=== PATIENT | male | born 1970 | race Caucasian/White ===

== ENCOUNTER 2024-05-27 08:55 | Outpatient (CLI) | payer OTHER, SELFPAY ==
--- NOTE | ~2024-05-27 | MR_ITS ---
MRI of the right knee Clinical history: Medial meniscus tear Technique: Coronal proton density and proton density-weighted images, sagittal proton-density and T2 fat-sat images, and axial proton-density fat-saturated images were acquired. Findings: Anterior and posterior cruciate ligaments are intact. Medial collateral ligament and the la teral collateral ligament complex are intact. Popliteus tendon is intact. There is extensive complex tearing and maceration of the posterior horn and body of medial meniscus. No lateral meniscal tear evident. There is minimal chondromalacia patella. There is mild chondromalacia the femoral trochlea. There is high-grade chondromalacia extensively involving the medial compartment, especially towards the joint line. There is minimal chondral thinning in the lateral compartment. Extensor mechanism is intact. Large joint effusion present with moderate Fernandez's cyst. Impression: Extensive complex tearing of the posterior horn and body medial meniscus, which are largely macerated in appearance. 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 Mild chondral malacia of the lateral and patellofemoral compartments. Large joint effusion with moderate Fernandez's cyst. Reviewed, dictated and finalized at [facility]. IMPLEMENT ENGINE MECHANIC Impression: Extensive complex tearing of the posterior horn and body medial meniscus, which are largely macerated in appearance. 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 Mild ch ondral malacia of the lateral and patellofemoral compartments. Large joint effusion with moderate Fernandez's cyst.
== END 2024-05-27 08:56 | disposition home or self-care (01) ==
LOC: MICIMG 08:56
PROVIDERS: PCP Orthopaedic Surgery; Visit Provider Orthopaedic Surgery
DX: S83.241A Other tear of medial meniscus, current injury, right knee, initial encounter (principal); X58.XXXA Exposure to other specified factors, initial encounter; M25.461 Effusion, right knee; M71.21 Synovial cyst of popliteal space [Baker], right knee
CPT/HCPCS: 73721

== ENCOUNTER 2024-07-07 11:31 | Outpatient (CLI) | payer OTHER, SELFPAY ==
--- OUTSIDE RECORDS SUMMARY | 2024-07-07 11:40 | XMS_ITS | Encounter Summary ---
Author Organization [employer] Address 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
--- OUTSIDE RECORDS SUMMARY | 2024-07-07 11:40 | XMS_ITS | Encounter Summary ---
Author Organization [employer] Address 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
--- OUTSIDE RECORDS SUMMARY | 2024-07-07 11:40 | XMS_ITS | Encounter Summary ---
Author Organization [employer] Address [address] [place] [address] Care Team Providers Care Auto Bench Mechanic Name Role Phone Miguel A Mcgill MD Primary Care Provider Encounter Details Date Type Department Care Team (Latest Contact Info) Description 02/15/2002 Outpatient Historical [facility] Miguel A Mcgill MD [address] [place] [address] ARTHRODESIS STATUS (Primary Dx) Social History Tobacco Use Types Packs/Day Years Used Date Smoking Tobacco: Never Assessed Sex and Gender Information Value Date Recorded Sex Assigned at Not on file Legal Sex Male 5:21 AM OBJECT ORIENTED DEVELOPER Gender Identity Not on file Sexual Orientation Not on file documented as of this encounter Plan of Treatment Not on file documented as of this encounter Visit Diagnoses Diagnosis Arthrodesis status- Primary documented in this encounter Care Teams Auto Bench Mechanic Relationship Specialty Start Date End Date Miguel A Mcgill MD [address] [place] [address] PCP - General 12/07/01 documented as of this encounter
--- OUTSIDE RECORDS SUMMARY | 2024-07-07 11:40 | XMS_ITS | Encounter Summary ---
Author Organization [employer] Address 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
--- OUTSIDE RECORDS SUMMARY | 2024-07-07 11:40 | XMS_ITS | Encounter Summary ---
Author Organization [facility] Care Team Providers Care Ring Sewer Name Role Phone Alfonzo Flower MD Primary Care Provider [phone] Brett Montano DO Primary Care Provider [phone] Encounter Details Date Type Department Care Team (Latest Contact Info) Description 08/27/2017 Orders Only [facility] ProviderLaura MD [address] [place] [address] Social History Tobacco Use Types Packs/Day Years Used Date Smoking Tobacco: Never Assessed Sex and Gender Information Value Date Recorded Sex Assigned at Not on file Legal Sex Male 11:51 PM TELETYPIST Gender Identity Not on file Sexual Orientation Not on file documented as of this encounter Plan of Treatment Not on file documented as of this encounter Procedures Procedure Name Priority Date/Time Associated Diagnosis Comments SCAN - LABS 02/23/2018 12:00 AM CDT documented in this encounter Results * SCAN - LABS (02/23/2018 12:00 AM CDT) Narrative 02/23/2018 12:00 AM CDT Ordered by an unspecified provider. Historical Provider Final Res ult documented in this encounter Visit Diagnoses Not on filedocumented in this encounter Care Teams Ring Sewer Relationship Specialty Start Date End Date Alfonzo Flower MD [address] [place] [address] PCP - General 06/12/09 04/04/23 Brett Montano DO [address] [place] [address] PCP - General Internal Medicine 04/05/23 documented as of this encounter
--- OUTSIDE RECORDS SUMMARY | 2024-07-07 11:40 | XMS_ITS | Referral Summary ---
Author Organization [facility] Address [address] [place] [address] Care Team Providers Care Potash Flaker Name Role Phone Brett Montano DO Primary Care Provider [phone] Allergies No known active allergies Medications ibuprofen (ADVIL,MOTRIN) 100 mg tablet Take by mouth every 6 (six) hours as needed Active sildenafiL (VIAGRA) 100 mg tablet Take 1 tablet (100 mg total) by mouth daily as needed 07/03/2021 Active amLODIPine-kiersten zepriL (LOTREL) 5-40 mg per capsule Take 1 capsule by mouth daily Active Active Problems Problem Noted Date Diagnosed Date Primary hypertension 09/24/2022 Shortness of breath 07/11/2021 Obesity (BMI 35.0-39.9 without comorbidity) 04/23 Abnormal EKG 08/23/2018 HTN (hypertension) 08/23/2018 Ectopic beats 08/23/2018 Brugada syndrome 02/20/2016 Tobacco abuse 02/20/2016 Abnormal EKG 02/19/2016 Ectopic beats 02/19/2016 Resolved Problems Problem Noted Date Diagnosed Date Resolved Date Obesity 08/23/2018 05/09/2021 Social History Tobacco Use Types Packs/Day Years Used Date Smoking Tobacco: Every Day Cigarettes Smokeless Tobacco: Never Sex and Gender Information Value Date Recorded Sex Assigned at Not on file Legal Sex Male 11:51 PM DATA MANAGEMENT ENGINEER Gender Identity Not on file Sexual Orientation Not on file Last Filed Vital Signs Vital Sign Reading Time Taken Comments Blood Pressure 126/70 04/05/2023 4:41 PM DATA MANAGEMENT ENGINEER Pulse 87 04/05/2023 4:41 PM DATA MANAGEMENT ENGINEER Temperature 36.7 C (98 F) 07/11/2021 8:21 AM DATA MANAGEMENT ENGINEER Respiratory Rate - - Oxygen Saturation 97% 04/05/2023 4:41 PM DATA MANAGEMENT ENGINEER Inhaled Oxygen Concentration - - Weight 90.4 kg (199 lb 4.8 oz) 04/05/2023 4:41 P M DATA MANAGEMENT ENGINEER Height 170.2 cm (5' 7 ) 04/05/2023 4:41 PM DATA MANAGEMENT ENGINEER Body Mass Index 31.21 04/05/2023 4:41 PM DATA MANAGEMENT ENGINEER Plan of Treatment Not on file Procedures Procedure Name Priority Date/Time Associated Diagnosis Comments PSA SCREEN Routine 01/05/2014 6:25 AM CDT from Last 3 Months or Most Recently Relevant to Health Maintenance Results * PSA screen (01/05/2014 6:25 AM CDT) PSA Screen 0.2 0.0 - 3.9 ng/mL 01/05/2014 10:12 AM CDT [facility] [employer] HISTORICAL RESULTS Comment: Method: ECLIA Values obtained by different assay methods cannot be used interchangeably. Use sequential testing to confirm baseline if assay method changed during patient monitoring. 01/05/2014 6:25 AM CDT 01/05/2014 6:39 AM CDT Narrative [facility] [employer] HISTORICAL RESULTS - 01/05/2014 10:12 AM CDT 12 PC Alfonzo Flower MD LAB BLOOD ORDERABLES Final Result [facility] [employer] HISTORICAL RESULTS from Last 3 Months or Most Recently Relevant to Health Maintenance Insurance CMR CMR Care Teams Potash Flaker Relationship Specialty Start Date End Date Brett Montano DO PCP - General Internal Medicine 04/05/23
--- OUTSIDE RECORDS SUMMARY | 2024-07-07 11:40 | XMS_ITS | Encounter Summary ---
Author Organization [employer] Address 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
--- OUTSIDE RECORDS SUMMARY | 2024-07-07 11:40 | XMS_ITS | Clinical Summary ---
Author Organization [facility] Address [address] Attn: Epic Prelude ADT [place] [address] Care Team Providers Care Environmental Law Professor Name Role Phone Miguel A Mcgill MD Primary Care Provider [phone] Social History Tobacco Use Types Packs/Day Years Used Date Smoking Tobacco: Never Assessed Sex and Gender Information Value Date Recorded Sex Assigned at Not on file Legal Sex Male 5:21 AM MEDIA LAW FACULTY MEMBER Gender Identity Not on file Sexual Orientation Not on file Plan of Treatment Health Maintenance Due Date Last Done Comments DTAP/TDAP/TD VACCINES (1 - Tdap) 1987 HEPATITIS B VACCINES (1 of 3 - 19+ 3-dose series) 1987 COLORECTAL SCREENING 2013 Colorectal Cancer Screening 2013 FIT-DNA Q 3 years 2013 FIT/FOBT Q 1 year 2013 Flex Sig/CT Colonography Q 5 years 2013 ZOSTER VACCINE (1 of 2) 2018 INFLUENZA VACCINE (#1) 2023 PNEUMOCOCCAL VACCINE 0-64 YEARS Aged Out No longer eligible based on patient's age to complete this topic Care Teams Environmental Law Professor Relationship Specialty Start Date End Date Miguel A Mcgill MD [address] [place] [address] PCP - General 12/07/01
--- OUTSIDE RECORDS SUMMARY | 2024-07-07 11:40 | XMS_ITS | Encounter Summary ---
Author Organization [employer] Address 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
--- OUTSIDE RECORDS SUMMARY | 2024-07-07 11:40 | XMS_ITS | Encounter Summary ---
Author Organization [employer] Address [address] [place] [address] Care Team Providers Care Administrative Coordinator Name Role Phone Miguel A Mcgill MD Primary Care Provider [phone] Encounter Details Date Type Department Care Team (Latest Contact Info) Description 04/05/2002 Outpatient Historical [facility] Miguel A Mcgill MD [address] [place] [address] POSTLAMINECT SYND-LUMBAR (Primary Dx) Social History Tobacco Use Types Packs/Day Years Used Date Smoking Tobacco: Never Assessed Sex and Gender Information Value Date Recorded Sex Assigned at Not on file Legal Sex Male 5:21 AM PRINCIPAL CLERK Gender Identity Not on file Sexual Orientation Not on file documented as of this encounter Plan of Treatment Not on file documented as of this encounter Visit Diagnoses Diagnosis Postlaminectomy syndrome, lumbar region- Primary documented in this encounter Care Teams Administrative Coordinator Relationship Specialty Start Date End Date Miguel A Mcgill MD [address] [place] [address] PCP - General 12/07/01 documented as of this encounter
--- OUTSIDE RECORDS SUMMARY | 2024-07-07 11:40 | XMS_ITS | Encounter Summary ---
Author Organization [facility] Care Team Providers Care Jingle Writer Name Role Phone Alfonzo Flower MD Primary Care Provider [phone] Brett Montano DO Primary Care Provider [phone] Encounter Details Date Type Department Care Team (Latest Contact Info) Description 01/05/2014 Orders Only [facility] ProviderLaura MD [address] [place] [address] Social History Tobacco Use Types Packs/Day Years Used Date Smoking Tobacco: Never Assessed Sex and Gender Information Value Date Recorded Sex Assigned at Not on file Legal Sex Male 11:51 PM DUB ROOM ENGINEER Gender Identity Not on file Sexual Orientation Not on file documented as of this encounter Plan of Treatment Not on file documented as of this encounter Procedures Procedure Name Priority Date/Time Associated Diagnosis Comments SCAN - LABS 02/19/2016 12:00 AM CDT documented in this encounter Results * SCAN - LABS (02/19/2016 12:00 AM CDT) Narrative 02/19/2016 12:00 AM CDT Ordered by an unspecified provider. Historical Provider Final Res ult documented in this encounter Visit Diagnoses Not on filedocumented in this encounter Care Teams Jingle Writer Relationship Specialty Start Date End Date Alfonzo Flower MD [address] [place] [address] PCP - General 06/12/09 04/04/23 Brett Montano DO [address] [place] [address] PCP - General Internal Medicine 04/05/23 documented as of this encounter
--- OUTSIDE RECORDS SUMMARY | 2024-07-07 11:40 | XMS_ITS | Clinical Summary ---
Author Organization [facility] Address [address] [place] [address] Care Team Providers Care Plc Technician Name Role Phone Brett Montano DO Primary Care Provider [phone] Allergies No known active allergies Medications ibuprofen [...] Diagnosed Date Resolved Date Obesity 08/23/2018 05/09/2021 Surgical History Surgery Date Site/Laterality Comments KNEE SURGERY BACK SURGERY Medical History Medical History Date Comments Abnormal EKG HTN (hypertension) Ectopic beats Obesity Family History Relation Name Status Comments Father Alive Mother Alive Social History Tobacco Use Types Packs/Day Years Used Date Smoking Tobacco: Every Day Cigarettes Smokeless Tobacco: Never Sex and Gender Information Value Date Recorded Sex Assigned at Not on file Legal Sex Male 11:51 PM DRAWING IN MACHINE TENDER HELPER Gender Identity Not on file Sexual Orientation Not on file Obstetrics History Last Filed Vital Signs Vital Sign Reading Time Taken Comments Blood Pressure 126/70 04/05/2023 4:41 PM DRAWING IN MACHINE TENDER HELPER Pulse 87 04/05/2023 4:41 PM DRAWING IN MACHINE TENDER HELPER Temperature 36.7 C (98 F) 07/11/2021 8:21 AM DRAWING IN MACHINE TENDER HELPER Respiratory Rate - - Oxygen Saturation 97% 04/05/2023 4:41 PM DRAWING IN MACHINE TENDER HELPER Inhaled Oxygen Concentration - - Weight 90.4 kg (199 lb 4.8 oz) 04/05/2023 4:41 P M DRAWING IN MACHINE TENDER HELPER Height 170.2 cm (5' 7 ) 04/05/2023 4:41 PM DRAWING IN MACHINE TENDER HELPER Body Mass Index 31.21 04/05/2023 4:41 PM DRAWING IN MACHINE TENDER HELPER Plan of Treatment Health Maintenance Due Date Last Done Comments Colon Cancer Screening-Colonoscopy 1968 Depression Screening 1968 Hepatitis C Screening 1968 Pneumococcal vaccine <65 (1 of 2 - PCV) 1974 DTaP/Tdap/Td Vaccine (1 - Tdap) 1979 Hepatitis B Screening 1986 Regular Well Visit/Exam 18-64 1986 Prostate Cancer Screening-PSA 01/06/2016 01/05/2014, 11/01/2012 Zoster Vaccine (1 of 2) 2018 Covid-19 Vaccine (3 - season) 2024, 07/19/2020 Influenza Vaccine (#1) 2024 Procedures Procedure Name Priority Date/Time Associated Diagnosis Comments PSA SCREEN Routine 01/05/2014 6:25 AM CDT from Last 3 Months or Most Recently Relevant to Health Maintenance Results * PSA screen (01/05/2014 6:25 AM CDT) [facility] Signature PSA Screen 0.2 0.0 - 3.9 ng/mL 01/05/2014 10:12 AM CDT [facility] HISTORICAL RESULTS Comment: Method: ECLIA Values obtained by different assay methods cannot be used interchangeably. Use sequential testing to confirm baseline if assay method changed during patient monitoring. 01/05/2014 6:25 AM CDT 01/05/2014 6:39 AM CDT Narrative [facility] HISTORICAL RESULTS - 01/05/2014 10:12 AM CDT 12 PC Alfonzo Flower MD LAB BLOOD ORDERABLES Final Result [facility] HISTORICAL RESULTS from Last 3 Months or Most Recently Relevant to Health Maintenance Insurance Care Teams Plc Technician Relationship Specialty Start Date End Date Brett Montano DO PCP - General Internal Medicine 04/05/23
--- NOTE | 2024-07-07 15:17 | ECG_ITS ---
Test Date: 2024-07-07 15:40:07 Measurements Intervals [place] Rate: 92 P: 68 [place]: 158 QRS: -14 QRSD: 98 T: 66 QT: 340 QTc: 421 Interpretive Statements SINUS RHYTHM POSSIBLE LEFT ATRIAL ENLARGEMENT INCOMPLETE RIGHT BUNDLE BRANCH BLOCK CONSIDER ANTERIOR INFARCT, AGE INDETERMINATE BASELINE ARTIFACT- V1-V2 ABNORMAL ECG No previous ECG available for comparison Electronically Signed On 07-07-2024 19:29:42 RESOURCE RECOVERY SPECIALIST by Nito Singletary D.O.
== END 2024-07-07 11:32 | disposition home or self-care (01) ==
PROVIDERS: PCP Internal Medicine; Visit Provider Orthopaedic Surgery
DX: I49.8 Other specified cardiac arrhythmias (principal); Z01.818 Encounter for other preprocedural examination
CPT/HCPCS: 93005

== ENCOUNTER 2024-07-12 00:12 | Day surgery (SDC) | payer OTHER, SELFPAY ==
[2024-07-04 15:36] VITALS: BMI 32.1
--- NOTE | 2024-07-04 15:47 | PC.NURSE ---
Report to the Outpatient Waiting Room, entrance under the green pavilion located off [facility], at time _0700_ on date _[id number]_. Planned Procedure Time: _0900_.? Time changes happen often and if your time is changed the preop area will call you the afternoon before. - You and your visitor will be asked to self-screen and do not enter if you have any COVID symptoms. Please call surgeon if you need to reschedule. - A mask is optional within the hospital at this time. Patients may have clear liquids (water, carbonated beverages, clear teas, apple juice) until 3 hours prior to surgery with a maximum of 20 ounces. - No food from midnight until time of surgery and no smoking, or chewing tobacco (or any form of nicotine). No chewing gum, candy or mints. Take only the following medications with a SIP of water on the morning of surgery: ___None____ DO NOT STOP ANY OF YOUR OTHER PRESCRIPTION MEDICATIONS PRIOR TO SURGERY EXCEPT THE FOLLOWING Hold all vitamins and supplements for 3 days per anesthesiologist. Please no make-up, nail guinean, hairspray, perfume, deodorant, or body powder the day of surgery.? No jewelry (including any body piercings) or valuables the day of surgery, leave them at home.? Please take a shower or bath the night before, or the morning of, surgery with an antibacterial soap.? Wear comfortable, loose fitting clothing.? - Jewelry must be removed prior to entering the operating room.? Rings and piercings that are not removed may be cut off. - The hospital will not accept responsibility for valuables.? - Please leave all valuables, including medications, at home the day of surgery. If you are going home after surgery, a licensed driver education road instructor must drive you home.? - NO public transportation without another adult if you receive anesthesia. - We recommend that an adult stay with you for 24 hours following discharge. - We also recommend that you do not drive, make important decision, drink alcoholic beverages, or take any drugs that were not prescribed by your health care provider for at least 24 hours after your discharge time. Follow any additional instructions given to you from your surgeon. Telephone instructions given to __Joe__and asked if any additional questions and then verbalized understanding. Patient advised to call surgeon office or pre surgery nurse liaison [phone] if any additional questions.
--- NOTE | 2024-07-11 07:52 | PM.IMHP ---
H&P: HPI History of Present Illness Date/Time: 07/11/24 07:52 Chief Complaint: Patient has mechanical catching and locking of his right knee. He has an MRI scan that demonstrates a meniscal tear. He has failed conservative treatment like to consider arthroscopic intervention. Review of Systems Musculoskeletal: Musculoskeletal: Reports arthralgias, Reports joint swelling and Reports stiffness Neurologic: Reports abnormal gait [facility] Past Medical History Medical History Brugada syndrome Hypertension Arthritis Anxiety Surgical History Surgical History Hx of spinal fusion H/O knee surgery Family History Family History Mother Hypertension Heart disease Cancer Father Patient's father is in good health Social History Social History Smoking packs per day: 1 Smoking cigarettes per day: 20.0 Years smoked: 40 Smoking pack-years: 40.00 Smoking status: Current every day smoker Tobacco type: cigarettes Alcohol intake: current Drinks per week: 10 Substance use: never Substance use type: does not use Lack of Transportation: No Lack of Food: Never True Current Housing: I Have Housing Concerned About Future Housing: No Difficulty Paying Gas/Electric Bills: YES Difficulty Paying for Meds: No Currently Unemployed: No Education: High School Diploma/GED Difficulty w/ Childcare or Family Care: No Living arrangements: with family Occupation/Education: occupation Gender identity (if verbalized by the patient): Male Spiritual care concerns: No Meds Home Medications and Allergies Home Medications ?Medication ?Instructions ?Recorded ?Confirmed ?Type amlodipine 5 mg-benazepril 40 mg 1 cap PO DAILY #90 caps 02/10/23 07/04/24 Rx capsule sildenafil 100 mg tablet 100 mg PO DAILY PRN sexual 02/10/23 07/04/24 Rx activity #30 tabs multivitamin (One-A-Day Essential 1 tablet PO DAILY 04/27/24 07/04/24 History tablet) Allergies Allergy/AdvReac Type Severity Reaction Status Date / Time No Known Allergies Allergy Verified 07/04/24 15:35 Exam Narrative: Patient is tender over the medial joint line. He has catching locking and pain with manipulation. Neurologically he is intact. He has a positive Jean Paul's sign and pain to palpation manipulation. Eyes: General: appearance normal, both eyes and all related structures Neck: Neck: supple Resp: Effort & Inspection: normal respiratory effort Cardio: Rate: regular rate Rhythm: regular rhythm Radiology Reports: Comments: Magnetic Resonance Report Signed Patient: Suleman Celestin MRI of the right knee Clinical history: Medial meniscus tear Technique: Coronal proton density and proton density-weighted images, sagittal proton-density and T2 fat-sat images, and axial proton-density fat-saturated images were acquired. Findings: Anterior and posterior cruciate ligaments are intact. Medial collateral ligament and the lateral collateral ligament complex are intact. Popliteus tendon is intact. There is extensive complex tearing and maceration of the posterior horn and body of medial meniscus. No lateral meniscal tear evident. There is minimal chondromalacia patella. There is mild chondromalacia the femoral trochlea. There is high-grade chondromalacia extensively involving the medial compartment, especially towards the joint line. There is minimal chondral thinning in the lateral compartment. Extensor mechanism is intact. Large joint effusion present with moderate Fernandez's cyst. Impression: Extensive complex tearing of the posterior horn and body medial meniscus, which are largely macerated in appearance. 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 Mild chondral malacia of the lateral and patellofemoral compartments. Large joint effusion with moderate Fernandez's cyst. Reviewed, dictated and finalized at [facility]. RESIDENT Please be advised this is a medical document. It is intended for [id number] communication. It is written in medical language and may contain unfamiliar abbreviations or verbiage. Medical documents are intended to carry relevant information, facts as evident, and the clinical opinion of the practitioner at the time of the encounter. Knee MRI 05/29/24 Assessment and Plan Assessment and plan (1) Acute medial meniscus tear of right knee: Code(s): S83.241A - Other tear of medial meniscus, current injury, right knee, initial encounter Status: Acute Assessment and Plan: Patient has complex tear of the medial meniscus right knee. He has been unresponsive to good conservative treatment. He has mechanical catching and locking I would like to consider arthroscopic intervention. I have discussed this with him risks, benefits, limitations, and alternatives in detail. Will proceed per his request.
[2024-07-12] VITALS (11 sets, daily range): BP systolic 85–150; BP diastolic 49–82; PULSE 72–91; RESP 12–18; TEMP 36.3–37.1; O2SAT 99–100
--- OUTSIDE RECORDS SUMMARY | 2024-07-12 00:15 | XMS_ITS | Continuity of Care Document ---
Author Organization [facility] Address [address] [place] [address] [address] [place] [address] Phone Care Team Providers Care Bleach Mixer Name Role Phone Escobar OD, Feliciano Unavailable Unavailable Procedures Procedure Date Office Consultation Advance Directives Directive Yes / No Effective Date File Name No Information Encounters Encounter Description Practice Location Reason(s) For Visit Diagnoses Date Provider Providers Copied on Encounter Office Consultation [facility], [address] [place], [place], [id number], [place] tel:[phone] [facility] No Information [address] Escobar OD Feliciano. [address] , [place] [address], [place], [address], [place]. tel:[phone] Referring Provider: Alfonzo Flower MD, [address] [facility] [place], [address]. tel:[phone] Family History Family Member Type Diagnosis Age At Onset No Information Payers Payer name Insurance type Covered green party ID Authoriza tion(s) [employer] SOI CI [id number] Social History Type Description Quantity Date Captured Comments Sex Male Smoking Status No Information Chief Complaint And Reason For Visit No Information Reason For Referral Reason For Referral No Information History Of Present Illness Encounter Date Complaint History Of Prese nt Illness No Information Functional Status Date Functional Assessmen t No Information Instructions Date Instruction Additional Infor mation No Information Assessments Type Assessment Date No Information Patient Care Teams Name Effective Dates (start - stop) Status Members No Information
--- OUTSIDE RECORDS SUMMARY | 2024-07-12 00:15 | XMS_ITS | Encounter Summary ---
Author Organization [facility] Facility Care Team Providers Care Cotton Machine Operator Name Role Phone Alfonzo Flower MD Primary Care Provider [phone] Brett Montano DO Primary Care Provider [phone]- [phone] Encounter Details Date Type Department Care Team (Latest Contact Info) Description 08/27/2017 Orders Only [facility] CLINCONV ProviderLaura MD [address] [place] [address] Social History Tobacco Use Types Packs/Day Years Used Date Smoking Tobacco: Never Assessed Sex and Gender Information Value Date Recorded Sex Assigned at Not on file 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
--- OUTSIDE RECORDS SUMMARY | 2024-07-12 00:15 | XMS_ITS | Clinical Summary ---
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
--- OUTSIDE RECORDS SUMMARY | 2024-07-12 00:16 | XMS_ITS | Encounter Summary ---
Author Organization [employer] Address 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
--- OUTSIDE RECORDS SUMMARY | 2024-07-12 00:16 | XMS_ITS | Encounter Summary ---
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
--- OUTSIDE RECORDS SUMMARY | 2024-07-12 00:16 | XMS_ITS | Encounter Summary ---
Author Organization [employer] Address 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
--- OUTSIDE RECORDS SUMMARY | 2024-07-12 00:16 | XMS_ITS | Encounter Summary ---
Author Organization [employer] Address [address] [place] [address] Care Team Providers Care Retirement Benefits Specialist Name Role Phone Miguel A Mcgill MD Primary Care Provider [phone] Encounter Details Date Type Department Care Team (Latest Contact Info) Description 07/27/2001 Outpatient Historical [facility] Miguel A Mcgill MD [address] [facility] [address] [place] [address] LUMB/LUMBOSAC DISC DEGEN (Primary Dx) Social History Tobacco Use Types Packs/Day Years Used Date Smoking Tobacco: Never Assessed Sex and Gender Information Value Date Recorded Sex Assigned at Not on file 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
--- OUTSIDE RECORDS SUMMARY | 2024-07-12 00:16 | XMS_ITS | Encounter Summary ---
Author Organization [employer] Address 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
--- OUTSIDE RECORDS SUMMARY | 2024-07-12 00:16 | XMS_ITS | Encounter Summary ---
Author Organization [employer] Address 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
--- OUTSIDE RECORDS SUMMARY | 2024-07-12 00:16 | XMS_ITS | Encounter Summary ---
Author Organization [employer] Address 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
--- OUTSIDE RECORDS SUMMARY | 2024-07-12 00:16 | XMS_ITS | Referral Summary ---
Author Organization [facility] Address [address] [place] [address] Care Team Providers Care Drop Wire Aliner Name Role Phone ChiomakathyBrett white Primary Care Provider [phone] Encounters Date Type Department Care Team Description 07/10/2024 Telephone [facility] Cardiology [address] [facility] [address] [address] Klever Ferrer MD from Last 3 Months Allergies No known active allergies Medications ibuprofen [...] on file Legal Sex Male 11:51 PM ALLIANCE DIRECTOR Gender Identity Not on file Sexual Orientation Not on file Last Filed Vital Signs Vital Sign Reading Time Taken Comments Blood Pressure 126/70 04/05/2023 4:41 PM ALLIANCE DIRECTOR Pulse 87 04/05/2023 4:41 PM ALLIANCE DIRECTOR Temperature 36.7 C (98 F) 07/11/2021 8:21 AM ALLIANCE DIRECTOR Respiratory Rate - - Oxygen Saturation 97% 04/05/2023 4:41 PM ALLIANCE DIRECTOR Inhaled Oxygen Concentration - - Weight 90.4 kg (199 lb 4.8 oz) 04/05/2023 4:41 P M ALLIANCE DIRECTOR Height 170.2 cm (5' 7 ) 04/05/2023 4:41 PM ALLIANCE DIRECTOR Body Mass Index 31.21 04/05/2023 4:41 PM ALLIANCE DIRECTOR Plan of Treatment Not on file Procedures Procedure Name Priority Date/Time Associated Diagnosis Comments PSA SCREEN Routine 01/05/2014 6:25 AM CDT from Last 3 Months or Most Recently Relevant to Health Maintenance Results * PSA screen (01/05/2014 6:25 AM CDT) [facility] Signature PSA Screen 0.2 0.0 - 3.9 ng/mL 01/05/2014 10:12 AM CDT [employer] HISTORICAL RESULTS Comment: Method: ECLIA Values obtained by different assay methods cannot be used interchangeably. Use sequential testing to confirm baseline if assay method changed during patient monitoring. 01/05/2014 6:25 AM CDT 01/05/2014 6:39 AM CDT Narrative [employer] HISTORICAL RESULTS - 01/05/2014 10:12 AM CDT 12 PC us Alfonzo Flower MD LAB BLOOD ORDERABLES Final Result [employer] HISTORICAL RESULTS from Last 3 Months or Most Recently Relevant to Health Maintenance Insurance Care Teams Drop Wire Aliner Relationship Specialty Start Date End Date Brett Montano DO PCP - General Internal Medicine 04/05/23
--- OUTSIDE RECORDS SUMMARY | 2024-07-12 00:16 | XMS_ITS | Encounter Summary ---
Author Organization [employer] Address 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
--- OUTSIDE RECORDS SUMMARY | 2024-07-12 00:16 | XMS_ITS | Clinical Summary ---
Author Organization [facility] Address [address] [place] [address] Care Team Providers Care Airline Station Agent Name Role Phone ChiomakathyBrett whiteIdalmis JOHNSON Primary Care Provider [phone] Allergies No known active allergies Medications ibuprofen [...] Diagnosed Date Resolved Date Obesity 08/23/2018 05/09/2021 Encounters Date Type Department Care Team Description 07/10/2024 Telephone [facility] Cardiology [address] [facility] [address] [address] Klever Ferrer MD from Last 3 Months Surgical History Surgery Date Site/Laterality Comments KNEE [...] on file Legal Sex Male 11:51 PM EXHIBIT DESIGNER Gender Identity Not on file Sexual Orientation Not on file Obstetrics History Last Filed Vital Signs Vital Sign Reading Time Taken Comments Blood Pressure 126/70 04/05/2023 4:41 PM EXHIBIT DESIGNER Pulse 87 04/05/2023 4:41 PM EXHIBIT DESIGNER Temperature 36.7 C (98 F) 07/11/2021 8:21 AM EXHIBIT DESIGNER Respiratory Rate - - Oxygen Saturation 97% 04/05/2023 4:41 PM EXHIBIT DESIGNER Inhaled Oxygen Concentration - - Weight 90.4 kg (199 lb 4.8 oz) 04/05/2023 4:41 P M EXHIBIT DESIGNER Height 170.2 cm (5' 7 ) 04/05/2023 4:41 PM EXHIBIT DESIGNER Body Mass Index 31.21 04/05/2023 4:41 PM EXHIBIT DESIGNER Plan of Treatment Health Maintenance Due Date Last Done Comments Colon Cancer Screening-Colonoscopy 1968 Depression Screening 1968 Hepatitis C Screening 1968 DTaP/Tdap/Td Vaccine (1 - Tdap) 1979 Hepatitis B Screening 1986 Regular Well Visit/Exam 18-64 1986 Pneumococcal vaccine <65 (1 of 2 - PCV) 1987 Prostate Cancer Screening-PSA 01/06/2016 01/05/2014, 11/01/2012 Zoster [...] PSA Screen 0.2 0.0 - 3.9 ng/mL Comment: Method: ECLIA Values obtained by different assay methods cannot be used interchangeably. Use sequential testing to confirm baseline if assay method changed during patient monitoring. 01/05/2014 6:25 AM CDT 01/05/2014 6:39 AM CDT Narrative [facility] Group 47 HISTORICAL RESULTS - 01/05/2014 10:12 AM CDT 12 PC Alfonzo Flower MD LAB BLOOD ORDERABLES Final Result [facility] HISTORICAL RESULTS from Last 3 Months or Most Recently Relevant to Health Maintenance Insurance CMR Care Teams Airline Station Agent Relationship Specialty Start Date End Date Brett Montano DO PCP - General Internal Medicine 04/05/23
--- NOTE | 2024-07-12 06:54 | WPDHPUPDATE1 ---
History and Physical Update Update Date/Time: 07/12/24 06:54 History and Physical has been reviewed, including an updated exam of the patient. There are NO changes in the patient's condition. Risks, benefits, and alternatives have been discussed and questions answered. Patient agrees to proceed with procedure.
[2024-07-12] MEDS: LACTATED RINGERS 1,000 ML 30 ML IV CONT ×2 (07:45→09:39)
[2024-07-12] MEDS: KETOROLAC 15 MG/ML VIAL (*BKC) IV PUSH (08:15)
[2024-07-12] MEDS: ACETAMINOPHEN 500 MG TABLET 1000 MG PO (08:15)
--- NOTE | 2024-07-12 08:29 | P.PNAN_ITS ---
Anes - Initial Pre Proc Eval Procedure: Operation Date: 07/12/24 09:00 Proposed Procedures p Right Knee Arthroscopy, Partial Meniscectomy, Proceed As Indicated - Abdiaziz Berg MD Date/Time: 07/12/24 08:29 Surgeon: Abdiaziz Berg MD Pre Op Diagnosis: right medial meniscal tear Patient Data Age: 54 Gender: M Height: 1.7 m Weight: 96.5 kg Last Vital Signs Temp 98.7 F 07/12/24 08:17 Pulse 91 07/12/24 08:17 Resp 18 07/12/24 08:17 BP 150/79 H 07/12/24 08:17 Pulse Ox 99 07/12/24 08:17 O2 Del Method Room Air 07/12/24 08:17 Allergies Allergy/AdvReac Type Severity Reaction Status Date / Time No Known Allergies Allergy Verified 07/12/24 08:11 Home Medications ?Medication ?Instructions ?Recorded ?Confirmed ?Type amlodipine 5 mg-benazepril 40 mg 1 cap PO DAILY #90 caps 02/10/23 07/12/24 Rx capsule sildenafil 100 mg tablet 100 mg PO DAILY PRN sexual 02/10/23 07/04/24 Rx activity #30 tabs multivitamin (One-A-Day Essential 1 tablet PO DAILY 04/27/24 07/04/24 History tablet) Patient hx anesthesia problems: none Family hx anesthesia problems: none Results Review: All pre-operative results and documents have been reviewed as part of the pre- operative evaluation. [facility] Past Medical History Medical History Brugada syndrome Hypertension Arthritis Anxiety Surgical History Surgical History Hx of spinal fusion H/O knee surgery Family History Family History Mother Hypertension Heart disease Cancer Father Patient's father is in good health Social History Social History Smoking packs per day: 1 Smoking cigarettes per day: 20.0 Years smoked: 40 Smoking pack-years: 40.00 Smoking status: Current every day smoker Tobacco type: cigarettes Alcohol intake: current Drinks per week: 10 Substance use: never Substance use type: does not use Lack of Transportation: No Lack of Food: Never True Current Housing: I Have Housing Concerned About Future Housing: No Difficulty Paying Gas/Electric Bills: YES Difficulty Paying for Meds: No Currently Unemployed: No Education: High School Diploma/GED Difficulty w/ Childcare or Family Care: No Living arrangements: with family Occupation/Education: occupation Gender identity (if verbalized by the patient): Male Spiritual care concerns: No Anes - Eval Final PreProcedure Day of Procedure 07/12/24 08:29 Patient weight: obese Lungs: normal air movement Airway: Mallampati scale class II Neurological: alert and oriented Last oral intake: >/= 8 hours ASA classification: III Emergent: no Anesthetic plan: proceed Anesthesia type and monitoring: general LMA and standard monitoring Results Review: All pre-operative results and documents have been reviewed as part of the pre- operative evaluation. HTN, brugada syndrome w good functional status. Pt smokes daily and did this am. Informed Consent: The patient's anesthetic plan and its attendant risks and benefits were discussed with the patient/family/POA. Questions were solicited and answers provided to the satisfaction of the patient/family/POA.
[2024-07-12] MEDS: ceFAZolin 2 GM/D5W 50 ML 2 GM/50 ML BAG IVPB (08:33)
[2024-07-12] MEDS: LIDO 1%/EPINEPHRINE 1:100,000 20 ML VIAL 30 ML INFILTRATE (09:00)
--- NOTE | 2024-07-12 09:10 | P.OP_ITS ---
Procedure Note - Detailed Date of Procedure 07/12/24 Pre-op Diagnosis RIGHT medial meniscal tear Post-op Diagnosis Same Procedure Performed RIGHT knee arthroscopy with partial meniscectomy Surgeon Abdiaziz Berg MD Anesthesia General Indications Catching, Locking and Pain Description of Procedure Patient [id number] to operating room # []. An anesthetic was administered. The knee was sterilely prepped and draped in the usual manner. Standard portals we re used. Superior medial portal was used for the outflow cannula, inferior lateral portal was used for the scope, inferior medial portal was used for the instruments. Arthroscopy was performed, the patellar femoral joint degenerative changes. The medial compartment showed a complex tear. The lateral compartment showed fraying. The ACL was intact. Using baskets and jhony the meniscal tear was trimmed back to a stable base so the nothing further could be pulled into the joint. Any loose or delaminated fragments were gently trimmed to a stable base. The medial compartment demonstrated grade 3 and even grade 4 changes. I had to make an accessory portal for positioning on the medial side. At this point the instruments were withdrawn, sutures placed and patient left the operating room in satisfactory condition. Estimated Blood Loss 20 Drains No Packing No Pathology None sent Complications No immediate complications Condition Stable Disposition PACU [facility] Billing Surgery - Charge Forward: Surgery Billing ([id number] Medial Meniscal / Partial Menis)
[2024-07-12] MEDS: ALBUTEROL SULFATE NEB 2.5 MG/3 ML INH INHALATION (09:42)
[2024-07-12] MEDS: oxyCODONE HCL (*CRX) 5 MG TAB IR PO (10:34)
--- NOTE | 2024-07-12 10:58 | SUR.PHASEI ---
0940 respiratory present to give albuteral tx
== END 2024-07-12 11:28 | disposition home or self-care (01) ==
PROVIDERS: PCP Internal Medicine; Visit Provider Orthopaedic Surgery
PROC: (CPT 29870; principal; 2024-07-12 09:00)
DX: S83.231A Complex tear of medial meniscus, current injury, right knee, initial encounter (principal); M94.261 Chondromalacia, right knee; M25.461 Effusion, right knee; M71.21 Synovial cyst of popliteal space [Baker], right knee; M17.11 Unilateral primary osteoarthritis, right knee; I10 Essential (primary) hypertension; F41.9 Anxiety disorder, unspecified; I49.8 Other specified cardiac arrhythmias; F17.210 Nicotine dependence, cigarettes, uncomplicated; X58.XXXA Exposure to other specified factors, initial encounter; E66.9 Obesity, unspecified; Z68.33 Body mass index [BMI] 33.0-33.9, adult; Z98.890 Other specified postprocedural states; Z98.1 Arthrodesis status; Z80.9 Family history of malignant neoplasm, unspecified; Z82.49 Family history of ischemic heart disease and other diseases of the circulatory system
CPT/HCPCS: 29881; 94640; A9270; J0690; J1100; J1885; J2004; J2250; J2371; J2405; J3010; J7120